=== PATIENT | male | born 1935 ===

== ENCOUNTER 2017-02-24 05:48 | Inpatient (IN) | payer MEDICARE ==
[2017-02-17 09:40] LABS: Basophils % (Auto) 0.9 % (0.0-1.8); Eosinophils % (Auto) 2.4 % (0.0-4.3); Hematocrit 39.7 % (35.5-45.6); Hemoglobin 13.3 gm/dl (11.8-15.2); Mean Corpuscular HGB Conc 34 % (32-34); Mean Corpuscular Hemoglobin 29 pg (28-32); Mean Corpuscular Volume 88 fl (84-94); Platelet Count 226 K/mm3 (140-440); Red Blood Count 4.53 M/mm3 (3.65-5.03); Red Cell Distribution Width 13.4 % (13.2-15.2); White Blood Count 7.7 K/mm3 (4.5-11.0)
--- NOTE | 2017-02-17 09:52 | Anesthesia Consultation ---
Anesthesia Consult and Med Hx Date of service: 02/24/17 - Airway Anesthetic Teeth Evaluation: Partials (upper, lower) ROM Head & Neck: Adequate Mental/Hyoid Distance: Adequate Mallampati Class: Class II Intubation Access Assessment: Probably Good - Pulmonary Exam CTA: Yes - Cardiac Exam Cardiac Exam: RRR - Pre-Operative Health Status ASA Pre-Surgery Classification: ASA3 Proposed Anesthetic Plan: General - Pulmonary Hx Smoking: Yes (CIGARETTES 3 PPD X 28 YRS, QUIT 30 YRS AGO) Hx Sleep Apnea: No - Cardiovascular System Hx Hypertension: Yes (FOR 10+ YRS, DR. HETAL CONDE- PCP, DR. RICO- CELLULOID TRIMMER) Hx Coronary Artery Disease: Yes (CABG 2004, EF 60% (2016)) Hx Peripheral Vascular Disease: Yes - Central Nervous System Hx Seizures: No CVA: No Hx Psychiatric Problems: No - Endocrine Hx Renal Disease: No Hx Non-Insulin Dependent Diabetes: Yes Hx Thyroid Disease: No - Hematic Hx Anemia: No - Other Systems Hx Cancer: Yes (PROSTATE, DX: [place] 2007) - Additional Comments Anesthesia Medical History Comments: CARDIAC CLEARANCE ON CHART
[2017-02-17 09:57] LABS: Anion Gap 15 mmol/L; Blood Urea Nitrogen 16 mg/dL (9-20); Calcium 9.7 mg/dL (8.4-10.2); Carbon Dioxide 25 mmol/L (22-30); Chloride 103.1 mmol/L (98-107); Glucose 94 mg/dL (75-100); Potassium 4.4 mmol/L (3.6-5.0); Sodium 139 mmol/L (137-145)
--- NOTE | 2017-02-21 07:35 | Admit Criteria Form ---
Admission Criteria Documentation: VASCULAR DISEASE GRG Clinical Indications for Admission to Inpatient Care (Place 'X' for any and all applicable criteria): Hospital admission is needed for appropriate care of the patient because of ANY ONE of the following (1)(2)(3)(4): [ ]I. Life-threatening or limb-threatening skin ulcer as indicated by ANY ONE of the following(5): [ ]a) Surrounding cellulitis unresponsive to outpatient treatment [ ]b) Wet gangrene [ ]c) Lymphangitis [ ]d) Bacteremia [ ]II. Gangrene requiring intensity and frequency of care not manageable to outpatient, emergency, or observation level of care(5) [ ]III. Severe pain requiring acute inpatient management [X ]IV. Interventional revascularization (eg, surgery, thrombolysis) needed (eg , critical limb ischemia)(21) [ ]V. Urgent inpatient IV anticoagulation needed due to ALL of the following: [ ]a) Temporary subtherapeutic anticoagulation unacceptable because of high risk of short-term venous or arterial thromboembolism due to ANY ONE of the following(7)(8)(9): [ ]i) Venous thromboembolism within the past 12 months [ ]ii) Underlying malignancy [ ]iii) Patient with mechanical cardiac valve(10)(11) [ ]iv) Underlying hypercoagulable state (eg, protein C or protein S deficiency, antithrombin deficiency, antiphospholipid antibodies) [ ]v) Patient at high risk of thromboembolism (eg, status post orthopedic surgery, history of recurrent venous thromboembolism) [ ]vi) Atrial fibrillation with rheumatic valvular heart disease [ ]vii) Atrial fibrillation with 3 or MORE of the following : [ ]1) Congestive heart failure [ ]2) Hypertension [ ]3) Age 65 years or older [ ]4) Diabetes mellitus [ ]5) History of thromboembolism (eg, stroke, TIA , or systemic embolization) more than 3 months ago [ ]6) Female gender [ ]b) Contraindications to outpatient use of "bridging" agent or alternative oral anticoagulant as indicated by ALL of the following: [ ]i) Contraindication to outpatient use of low-molecular -weight heparin as "bridging" agent as indicated by ANY ONE of the following(8) : [ ]1) Documented current or history of heparin- induced thrombocytopenia(12) [ ]2) Severe thrombocytopenia (eg, platelet count less than 50,000/mm3 (50 x109/L)) [ ]3) Documented allergy to heparin, low- molecular-weight heparin, or pork products [ ]4) Renal failure (creatinine clearance < 30 mL /min/1.73m2 (0.50 mL/sec/1.73m2) or on dialysis) [ ]5) Inability to manage self-injection (eg, by patient, caregiver, or visiting nurse) [ ]ii) Contraindication to outpatient use of fondaparinux as "bridging" agent as indicated by ANY ONE of the following(13)(14)(15)(16): [ ]1) Severe thrombocytopenia (eg, platelet count less than 50,000/mm3 (50 x109/L)) [ ]2) Hypersensitivity to fondaparinux, related drugs, or product components [ ]3) Renal failure (creatinine clearance less than 30 mL/min/1.73m2 (0.50 mL/sec/1.73m2) or on dialysis) [ ]4) Inability to manage self-injection (eg, by patient, caregiver, or visiting nurse) [ ]iii) Oral direct thrombin inhibitor (eg, dabigatran) or oral coagulation factor Xa inhibitor (eg, rivaroxaban) not appropriate as oral anticoagulation (eg, indication not appropriate) or contraindicated (eg, hypersensitivity, renal failure)(13)(16)(17)(18)(19)(20) [ ]. Suspected severe acute ischemia due to peripheral vascular disease as indicated by ANY ONE of the following(5)(6): [ ]a) Tissue necrosis [ ]b) Severe pain [ ]c) Acute pulselessness [ ]d) Other evidence of acute severe ischemia (eg, lactic acidosis , motor dysfunction) [ ]VII. Acute or newly diagnosed major vessel (eg, aorta) dissection, rupture, or leakage(5)(6)(22)(23) [ ]VIII.Vascular Disease and ALL of the following: [ ]a) Symptom or finding for which emergency and observation care have failed or are not considered appropriate (Use General Criteria: Observation Care as appropriate) [ ]b) Presence of ANY ONE of the following: [ ]i) A General Admission Criteria [ ]ii) A Pediatric General Admission Criteria The original [facility] content created by Ankita Stone has been revised. The portions of the content which have been revised are identified through the use of italic text or in bold, and [facility] has neither reviewed nor approved the modified material. All other unmodified content is copyright [facility]. Please see references footnoted in the original [facility] edition 2016 Admission Criteria Met: Yes
[2017-02-24] MEDS ORDERED: ANCEF/STERILE WATER 2 GM/20 ML 2 GM/20 ML SYRINGE IV NR (06:00)
[2017-02-24] MEDS ORDERED: PEPCID PO NR (06:00)
[2017-02-24] MEDS ORDERED: VERSED IV NR (06:00)
[2017-02-24] MEDS: NACL 0.9% 1000 ML 1,000 ML IV SCH ×2 (06:52→22:53)
[2017-02-24] MEDS ORDERED: SUBLIMAZE ONE (07:05)
[2017-02-24] MEDS ORDERED: DIPRIVAN 10 MG/ML IV ONE (07:06)
[2017-02-24] MEDS ORDERED: ePHEDrine SULFATE ONE (07:06)
[2017-02-24] MEDS ORDERED: PAPAVERINE ONE (07:26)
[2017-02-24] MEDS ORDERED: PROTAMINE SULFATE ONE (07:26)
[2017-02-24] MEDS ORDERED: MARCAINE 0.5% 30 ML INFILTRATI ONE (07:27)
[2017-02-24] MEDS ORDERED: NACL 0.9% 500 ML 500 ML ONE (07:27)
[2017-02-24] MEDS ORDERED: HEPARIN 10,000 UNITS/10 ML ONE ×2 (07:27→09:17)
[2017-02-24] MEDS ORDERED: NACL ONE (07:27)
[2017-02-24] MEDS ORDERED: RIFADIN ONE (07:27)
[2017-02-24] MEDS ORDERED: NITROGLYCERIN SYRINGE 0 ML ONE (07:28)
[2017-02-24] MEDS ORDERED: DILAUDID IV PRN (08:16)
[2017-02-24] MEDS ORDERED: ZOFRAN IV PRN ×2 (08:16→10:21)
--- NOTE | 2017-02-24 08:16 | Anesthesia Day of Surgery ---
Anesthesia Day of Surgery - Day of Surgery Patient Examined: Yes Patient H&P Reviewed: Yes Patient is NPO: Yes Beta Blockers: Yes Cardiac Clearance: Yes
[2017-02-24] MEDS ORDERED: HEPARIN 10,000 UNITS/10 ML 2,000 UNIT in NACL 0.9% 500 ML 500 ML IR ONE (08:38)
[2017-02-24] MEDS ORDERED: RIFADIN 600 MG in NACL 0.9% 50 ML IR ONE (08:38)
[2017-02-24] MEDS ORDERED: MARCAINE 0.5% INFILTRATI ONE (08:38)
[2017-02-24] MEDS ORDERED: NACL 0.9% IR ONE (08:38)
[2017-02-24] MEDS ORDERED: ROBINUL ONE ×2 (09:17)
[2017-02-24] MEDS ORDERED: NACL 0.9% 1000 ML 1,000 ML ONE (09:17)
[2017-02-24] MEDS ORDERED: ZEMURON IV ONE (09:17)
[2017-02-24] MEDS ORDERED: NACL 0.9% 100 ML ONE (09:17)
[2017-02-24] MEDS ORDERED: NEOSTIGMINE ONE (09:17)
[2017-02-24] MEDS ORDERED: XYLOCAINE MPF 2% ONE (09:17)
[2017-02-24] MEDS ORDERED: QUELICIN ONE (09:17)
[2017-02-24] MEDS ORDERED: BENADRYL ONE (09:17)
[2017-02-24] MEDS ORDERED: DECADRON ONE (10:08)
[2017-02-24] MEDS ORDERED: NORCO 5/325 PO PRN (10:21)
[2017-02-24] MEDS ORDERED: MORPHINE IV PRN ×2 (10:21)
[2017-02-24] MEDS ORDERED: NARCAN 0.4 MG/1 ML IV PRN (10:21)
[2017-02-24] MEDS ORDERED: NITROSTAT SL PRN (10:22)
--- NOTE | 2017-02-24 10:42 | Post Anesthesia Evaluation ---
- Post Anesthesia Evaluation Patient Participated: Yes Airway Patent: Yes Stable Respiratory Function: Yes Nausea/Vomiting: No Temp > 96.8F: Yes Pain Manageable: Yes Adequeate Hydration: Yes Anesthesia Complications: No Block Receding Appropriately: Not Applicable Patient on Ventilator: No
[2017-02-24] MEDS ORDERED: ANCEF/NS 1 GM/50 ML 1 GM/50 ML BAG IV SCH (11:00)
--- NOTE | 2017-02-24 12:57 | Operative Report ---
Operative Report Operative Report: Date of Procedure: 02/24/2017 Pre-operative Diagnosis: PVD with Short Distance Claudication Post-operative Diagnosis: Same Procedure(s): 1. Left Femoral Endarterectomy with Bovine Patch Angioplasty Surgeon: Tavo Olivo M.D. Supervisor Shuttle Veneering: None Anesthesia: Gen. endotracheal anesthesia EBL: 100 mL Counts: Correct Complications: None Condition: Stable Findings: Successful left common femoral artery endarterectomy with palpable pulses in both the SFA and profunda artery at the completion of the case. Specimen: Left common femoral artery plaque sent to pathology. Indication: The patient is a [id number] male with history of peripheral vascular disease who has progressively worsening short distance claudication. He has had previous intervention but recently had a CTA that demonstrated near total occlusion of his left common femoral artery. He was offered a femoral endarterectomy. He was given the risk, benefits, and alternative procedures and consented to the procedure. Description of Procedure: The patient was brought to the operating room and laid in supine position. After general endotracheal anesthesia was achieved his left leg was prepped and draped in normal sterile fashion. A longitudinal incision was made in the groin and carried down to the femoral artery using a combination of electrocautery and sharp dissection. The common femoral artery as well as the profunda and SFA were then dissected circumferentially and control vessels. I systemically heparinized the patient after this had circulated for 3 minutes I clamped each vessel and then made an arteriotomy extending from the proximal common femoral artery to the proximal SFA. Upon entering there was a heavily calcified posterior plaque however the majority of the plaque was quite soft. I used a [place] knife to separate the plaque from the arterial wall. All loose strands of plaque were then removed using the ring forceps. I back bled the SFA and profunda was excellent backbleeding. Both arteries were then flushed with heparinized saline. I then used a bovine pericardial patch was sewn in place using 2 6-0 Prolenes in running fashion. Prior to completing the closure I did back bleed the profunda and SFA as well as flush out the external iliac artery. I reclamped all arteries and then flushed the arteriotomy with heparinized saline and then completed the closure. All clamps were then removed allowing flow into the left leg. The pulse in the profunda and SFA were easily palpable. Hemostasis within the wound was achieved with a combination of 6-0 Prolenes in interrupted fashion to close any defects on the patch. Additional hemostasis within the wound was achieved with quick clot. Once hemostasis was achieved the wound was anesthetized with Marcaine and then closed in 3 layers using 3-0 Vicryl running fashion to reapproximate the fascia , 3-0 Vicryl running fashion the deep dermal layer, and a 4-0 Monocryl in running fashion and subcutaneous layer. The patient tolerated the procedure well. All sponge, needle, and instrument counts were correct. The patient was taken to the recovery area in stable condition.
[2017-02-24] MEDS ORDERED: BENADRYL PO PRN (18:35)
[2017-02-24] MEDS ORDERED: HALFPRIN EC PO SCH (22:00)
[2017-02-24] MEDS ORDERED: ZOCOR PO SCH (22:00)
[2017-02-24] MEDS ORDERED: LOPRESSOR PO SCH (22:00)
[2017-02-25 05:17] LABS: Anion Gap 22 mmol/L; BUN/Creatinine Ratio 16.25; Blood Urea Nitrogen 13 mg/dL (9-20); Calcium 8.6 mg/dL (8.4-10.2); Carbon Dioxide 19 mmol/L (22-30); Chloride 103.3 mmol/L (98-107); Glucose 141 mg/dL (75-100); Potassium 4.7 mmol/L (3.6-5.0); Sodium 140 mmol/L (137-145)
[2017-02-25 05:18] LABS: Hematocrit 37.6 % (35.5-45.6); Hemoglobin 12.4 gm/dl (11.8-15.2)
[2017-02-25] MEDS ORDERED: LOVENOX SUB-Q SCH (10:00)
[2017-02-25] MEDS ORDERED: COZAAR PO SCH (10:00)
[2017-02-25] MEDS ORDERED: GLUCOPHAGE PO SCH (10:00)
--- NOTE | 2017-02-25 13:41 | Consultation ---
History of Present Illness Consult date: 02/25/17 Requesting physician: SERA VILLALOBOS Reason for consult: other (S/P Left common Femoral Artery end arterectomy with patch angioplasty) History of present illness: PULMONARY/CCM CONSULT NOTE (Full dictation # [id number]) Please see dictated notes for full details Medications and Allergies Allergies Allergy/AdvReac Type Severity Reaction Status Date / Time No Known Allergies Allergy Unverified 02/14/17 13:48 Home Medications Medication Instructions Recorded Confirmed Last Taken Type Acetaminophen [Tylenol] 500 mg PO Q6HR PRN 02/14/17 02/24/17 02/23/17 22:00 History Aspirin EC [Aspirin Enteric Coated 81 mg PO QHS 02/14/17 02/24/17 02/23/17 22: 00 History TAB] Losartan [Cozaar] 50 mg PO QDAY 02/14/17 02/24/17 02/23/17 09:00 History Metoprolol [Lopressor TAB] 50 mg PO QHS 02/14/17 02/24/17 02/23/17 22:00 History Nitroglycerin [Nitrostat] 0.4 mg SL Q5M PRN 02/14/17 02/14/17 Unknown History Simvastatin [Zocor TAB] 40 mg PO QHS 02/14/17 02/24/17 02/23/17 22:00 History metFORMIN [Glucophage] 500 mg PO QDAY 02/14/17 02/24/17 02/22/17 09:00 History Active Meds: Active Medications Acetaminophen/Hydrocodone Bitart ([place] 5/325) 2 each PO Q6H PRN PRN Reason: Pain, Moderate (4-6) Last Admin: 02/24/17 22:58 Dose: 2 each Aspirin (Halfprin Ec) 81 mg PO QHS [facility] Last Admin: 02/24/17 22:53 Dose: 81 mg Diphenhydramine HCl (Benadryl) 25 mg PO Q6H PRN PRN Reason: Insomnia Enoxaparin Sodium (Lovenox) 40 mg SUB-Q QDAY [facility] Last Admin: 02/25/17 11:41 Dose: 40 mg Sodium Chloride (Nacl 0.9% 1000 Ml) 1,000 mls @ 42 mls/hr IV DIRECT [facility] Last Admin: 02/24/17 22:53 Dose: 42 mls/hr Losartan Potassium (Cozaar) 50 mg PO QDAY [facility] Last Admin: 02/25/17 11:40 Dose: 50 mg Metformin HCl (Glucophage) 500 mg PO QDAY [facility] Last Admin: 02/25/17 11:41 Dose: 500 mg Metoprolol Tartrate (Lopressor) 50 mg PO QHS [facility] Last Admin: 02/24/17 23:43 Dose: Not Given Morphine Sulfate (Morphine) 2 mg IV Q4H PRN PRN Reason: Pain, Moderate (4-6) Morphine Sulfate (Morphine) 4 mg IV Q4H PRN PRN Reason: Pain , Severe (7-10) Naloxone HCl (Narcan 0.4 Mg/1 Ml) 0.1 mg IV Q2MIN PRN PRN Reason: Res Rate </= 8 or 02 SAT < 92% Nitroglycerin (Nitrostat) 0.4 mg SL Q5M PRN PRN Reason: Chest Pain Ondansetron HCl (Zofran) 4 mg IV Q8H PRN PRN Reason: Nausea And Vomiting Simvastatin (Zocor) 40 mg PO QHS [facility] Last Admin: 02/24/17 22:53 Dose: 40 mg Physical Examination Vital signs: Vital Signs Temp Pulse Resp BP 98.2 F 68 20 132/70 02/17/17 09:15 02/17/17 09:15 02/17/17 09:15 02/17/17 09:15 Results - Laboratory Findings CBC and BMP: 02/25/17 04:38 02/25/17 04:38 PT/INR, D-dimer PT 13.1 Sec. (12.2-14.9) 02/17/17 09:08 INR 1.00 (0.87-1.13) 02/17/17 09:08 Abnormal lab findings: Abnormal Labs 02/24/17 02/24/17 02/24/17 07:03 10:18 16:52 Carbon Dioxide Glucose POC Glucose 128 H 127 H 146 H 02/24/17 02/25/17 21:06 04:38 Carbon Dioxide 19 L Glucose 141 H POC Glucose 185 H
--- NOTE | 2017-02-25 15:03 | Short Stay Summary ---
Short Stay Documentation Date of service: 02/25/17 - History H&P: obtained from office - Allergies and Medications Current Medications: Allergies No Known Allergies Allergy (Unverified 02/14/17 13:48) Home Medications Medication Instructions Recorded Confirmed Last Taken Type Acetaminophen [Tylenol] 500 mg PO Q6HR PRN 02/14/17 02/24/17 02/23/17 22:00 History Aspirin EC [Aspirin Enteric Coated 81 mg PO QHS 02/14/17 02/24/17 02/23/17 22: 00 History TAB] Losartan [Cozaar] 50 mg PO QDAY 02/14/17 02/24/17 02/23/17 09:00 History Metoprolol [Lopressor TAB] 50 mg PO QHS 02/14/17 02/24/17 02/23/17 22:00 History Nitroglycerin [Nitrostat] 0.4 mg SL Q5M PRN 02/14/17 02/14/17 Unknown History Simvastatin [Zocor TAB] 40 mg PO QHS 02/14/17 02/24/17 02/23/17 22:00 History metFORMIN [Glucophage] 500 mg PO QDAY 02/14/17 02/24/17 02/22/17 09:00 History Active Medications Acetaminophen/Hydrocodone Bitart ([place] 5/325) 2 each PO Q6H PRN PRN Reason: Pain, Moderate (4-6) Last Admin: 02/24/17 22:58 Dose: 2 each Aspirin (Halfprin Ec) 81 mg PO QHS [facility] Last Admin: 02/24/17 22:53 Dose: 81 mg Diphenhydramine HCl (Benadryl) 25 mg PO Q6H PRN PRN Reason: Insomnia Enoxaparin Sodium (Lovenox) 40 mg SUB-Q QDAY [facility] Last Admin: 02/25/17 11:41 Dose: 40 mg Sodium Chloride (Nacl 0.9% 1000 Ml) 1,000 mls @ 42 mls/hr IV DIRECT [facility] Last Admin: 02/24/17 22:53 Dose: 42 mls/hr Losartan Potassium (Cozaar) 50 mg PO QDAY [facility] Last Admin: 02/25/17 11:40 Dose: 50 mg Metformin HCl (Glucophage) 500 mg PO QDAY [facility] Last Admin: 02/25/17 11:41 Dose: 500 mg Metoprolol Tartrate (Lopressor) 50 mg PO QHS [facility] Last Admin: 02/24/17 23:43 Dose: Not Given Morphine Sulfate (Morphine) 2 mg IV Q4H PRN PRN Reason: Pain, Moderate (4-6) Morphine Sulfate (Morphine) 4 mg IV Q4H PRN PRN Reason: Pain , Severe (7-10) Naloxone HCl (Narcan 0.4 Mg/1 Ml) 0.1 mg IV Q2MIN PRN PRN Reason: Res Rate </= 8 or 02 SAT < 92% Nitroglycerin (Nitrostat) 0.4 mg SL Q5M PRN PRN Reason: Chest Pain Ondansetron HCl (Zofran) 4 mg IV Q8H PRN PRN Reason: Nausea And Vomiting Simvastatin (Zocor) 40 mg PO QHS [facility] Last Admin: 02/24/17 22:53 Dose: 40 mg - Physical exam General appearance: no acute distress HEENT: Atraumatic, EOMI Lungs: Normal air movement Extremities: no ischemia, abnormal (Incision intact without erythema or drainage ) Neurological: Other (no focal deficits appreciated) - Brief post op/procedure progress note Procedure: Operative Report Operative Report: Date of Procedure: 02/24/2017 Pre-operative Diagnosis: PVD with Short Distance Claudication Post-operative Diagnosis: Same Procedure(s): 1. Left Femoral Endarterectomy with Bovine Patch Angioplasty Surgeon: Tavo Olivo M.D. Assurance Engineer: Dwayne Anesthesia: Gen. endotracheal anesthesia EBL: 100 mL Counts: Correct Complications: None Condition: Stable Findings: Successful left common femoral artery endarterectomy with palpable pulses in both the SFA and profunda artery at the completion of the case. Specimen: Left common femoral artery plaque sent to pathology. Indication: The patient is a [id number] male with history of peripheral vascular disease who has progressively worsening short distance claudication. He has had previous intervention but recently had a CTA that demonstrated near total occlusion of his left common femoral artery. He was offered a femoral endarterectomy. He was given the risk, benefits, and alternative procedures and consented to the procedure. - Hospital course Hospital course: Pt admitted in prep for the above stated surgery which was completed without difficulty. Post-op the pt was transferred to the PACU and then to the ICU. The pt did well and his activity was increased. He was slightly WOOD initially. This improved thoughout the day. His VS were stable. Pt appears stable for discharge. D/c instructions were given to the pt and his family member at the bedside. Pt will f/u in our office in ~2 weeks or sooner if needed. - Disposition Condition at discharge: Good Disposition: DC-01 TO HOME OR SELFCARE - Discharge Diagnoses (1) Atherosclerosis of [place] arteries of extremity with intermittent claudication Status: Acute Qualifiers: Peripheral atherosclerosis location: P Laterality: L Short Stay Discharge Plan Activity: advance as tolerated (Out of bed to chair and ambulate as tolerated. Increase activity daily over the next 6 wks. Okay to shower, but do not soak in water (tub, pool, hot tub, ect.)) Weight Bearing Status: Weight Bear as Tolerated Diet: regular Wound: open to air, keep clean and dry Special Instructions: no heavy lifting Follow up with: TAVO OLIVO MD [Staff Physician] - 14 Days Prescriptions: traMADol [Ultram] 50 mg PO Q6HR PRN #30 tablet PRN Reason: Pain
[2017-02-25 15:58] VITALS: BP 140/55
--- NOTE | 2017-02-26 01:00 | Consultation ---
CONSULTING PHYSICIAN: Tavo Olivo MD REASON FOR CONSULTATION: Close observation, status post left femoral artery endarterectomy and patch angioplasty. CHIEF COMPLAINT AND HISTORY OF PRESENT ILLNESS: The patient is a 81-year-old male with past medical history significant amongst other things for a diagnosis of atherosclerotic vascular disease, intermittent claudication, and I believe coronary artery disease, who was scheduled for a left femoral artery endarterectomy, came into the OR for that procedure yesterday. Post procedure, the vascular surgeon has requested an ICU admission for close observation considering the nature of the surgery and I believe the perioperative issues related. When I stopped by to see the patient, he was lying in bed, could move his feet, complaining of a little bit of pain. Denied any chest pains. Denied nausea or vomiting. Denied fevers or chills. He does have a 20+ pack year tobacco smoking history; however, quit smoking in the 70's. The surgery apparently went well. No intraoperative complications and he has been relatively hemodynamically stable since he has been in the hospital. He does complain of significant insomnia, but denies any snoring or witnessed apneas. His is also in the room to give a history. That really is as much of the history of this presentation as I have. PAST MEDICAL HISTORY: Again atherosclerotic vascular disease, prostate cancer, diabetes, hypertension, coronary artery disease. PAST SURGICAL HISTORY: He had a history of back surgery in 05/2015. I believe right knee surgery in 06/2016, cardiac bypass/coronary artery bypass grafting in 05/2005, appendectomy in 1951 and some surgery on his prostate in 2007. He has also had multiple vascular surgeries, atherectomy with left angioplasty and stenting, it is unclear which vessel in 07/2016; venous ablation in 11/2016, left great saphenous vein. MEDICATIONS: He was on at the time I stopped by to see him according to the medication administration record included the following: [place] 5/325 two tablets p.o. q. 6 hours p.r.n. moderate pain, aspirin 81 mg p.o. daily, Benadryl 25 mg p.o. q. 6 hours p.r.n. insomnia, Lovenox 40 mg subq daily, losartan 50 mg p.o. daily, metformin 500 mg p.o. daily, Lopressor 50 mg p.o. at bedtime, morphine sulfate 2 mg IV q. 4 hours p.r.n. moderate pain and 4 mg IV q. 4 hours p.r.n. significant pain, p.r.n. Narcan, Zofran 4 mg IV q. 8 hours p.r.n. nausea and vomiting, Zocor 40 mg p.o. at bedtime. ALLERGIES: No known drug allergies. DIET: Slightly obese gentleman. Denies acute weight loss or gain in the preceding few weeks to months. FAMILY AND SOCIAL HISTORY: Lives in the community. His is in the room, 30+ pack year remote smoker. No current alcohol, tobacco, or illicit drug use or abuse. Family history otherwise noncontributory. REVIEW OF SYSTEMS: No loss of consciousness. No new-onset seizures. No new-onset focal weakness. No gross hematochezia or melena. No gross hematuria or dysuria. No hematemesis, no hemoptysis, no palpitations. He is complaining of pain in the area of his surgery. Complete review of systems was obtained. Pertinent positives and/or negatives are as in body of history above, otherwise they are noncontributory. PHYSICAL EXAMINATION: VITAL SIGNS: At presentation, afebrile with temperature 97.8; pulse 59; respiratory rate 18; blood pressure 142/68; oxygen sats were 99%, inspired oxygen concentration was not recorded at the time, he is on room air at the time of my evaluation. HEAD, EYES, EARS, NOSE AND THROAT: Pupils are equal, round, about 3-4 mm, reactive to light. Extraocular muscle movements appeared intact. Grossly, there were no palpable lymph nodes in the supraclavicular or submandibular lymph node chains. LUNGS: Auscultation of both lung colon, diminished bilateral breath sounds; however, clear. HEART: Heart sounds 1 and 2 were heard, regular rate and rhythm at the time of my evaluation. There was no carotid bruit and no murmurs. ABDOMEN: Soft, full, bowel sounds are positive, nontender. EXTREMITIES: Without overt digital clubbing, cyanosis or pedal edema. NEUROLOGIC: The exam is grossly nonfocal. His extremities are warm and nontender to the touch bilaterally. LABORATORY DATA: From my review are as follows: White cell count from the 5th of this month 7.7 with a hemoglobin of 13.3, hematocrit of 39.7 and platelet count of 226. INR was 1.00 at that time. Today, his hemoglobin is 12.4. His serum sodium 140, potassium 4.7, chloride 103, bicarbonate 19, BUN 13, creatinine 0.8, glucose 141. I do not have any radiographic studies for review. ASSESSMENT AND PLAN: We have an elderly gentleman status post vascular procedure, no major intraoperative complications, apparently has done well. He will be reevaluated by his vascular surgeon today and the plan will be to possibly transfer him to a telemetry bed or perhaps even discharge him home. I believe they are trying to see if he ambulates and make sure that his limb is completely viable before discharge. For now, we will continue current care. I will add GI prophylaxis to the mix. I have told him to consider Sleep Clinic evaluation for his insomnia. He has been tolerating Benadryl and using that at home at bedtime and that has been ordered by his physician. Flu and pneumonia vaccination will be per protocol. Thank you very much for the consult Dr. Olivo. We will follow along and make further recommendations as picture progresses/becomes clearer. JOB# [id number] YENIFER/ROSANA
== END 2017-02-25 16:21 | disposition home or self-care (01) | DRG 254 ==
LOC: 3A 05:48 → CC1 19:43
PROVIDERS: ADMIT Surgery Vascular Surgery; ATTEND Surgery Vascular Surgery
PROC: 04CL0ZZ Extirpation of Matter from Left Femoral Artery, Open Approach (ICD-10-PCS; principal; 2017-02-24)
PROC: 04UL0JZ Supplement Left Femoral Artery with Synthetic Substitute, Open Approach (ICD-10-PCS; 2017-02-24)
DX: I70.222 Atherosclerosis of native arteries of extremities with rest pain, left leg (principal); E11.51 Type 2 diabetes mellitus with diabetic peripheral angiopathy without gangrene; I25.10 Atherosclerotic heart disease of native coronary artery without angina pectoris; I10 Essential (primary) hypertension; F17.210 Nicotine dependence, cigarettes, uncomplicated; Z85.46 Personal history of malignant neoplasm of prostate; Z95.1 Presence of aortocoronary bypass graft; Z80.9 Family history of malignant neoplasm, unspecified; Z82.49 Family history of ischemic heart disease and other diseases of the circulatory system
CPT/HCPCS: 36415; 80048; 82962; 85014; 85018; 85025; 85610; 86850; 86900; 86901; 88304; 88311; 94760; C1768; J0330; J0690; J1100; J1200; J1644; J1650; J2250; J2405; J2440; J2704; J2710; J2720; J3010; J3490; J7030; J7040